=== PATIENT | male | born 1960 | race Caucasian/White ===

== ENCOUNTER → 2021-01-05 | Outpatient (CLI) | payer OTHER ==
--- NOTE | 2021-01-05 15:55 | REP ---
INDICATION: Assess stenosis TECHNIQUE: Carotid ultrasonography was performed bilaterally FINDINGS: Right: CCA systolic: 108.0 centimeters/second CCA diastolic: 21.7 centimeters/second ICA systolic: 82.0 centimeters/second ICA diastolic: 24.5 centimeters/second ICA CCA ratio: 0.76 Left: CCA systolic: 116.0 centimeters/second CCA diastolic: 23.8 centimeters/second ICA systolic: 104.0 centimeters/second ICA diastolic: 25.2 centimeters/second ICA CCA ratio: 0.90 Vertebral artery: Right: Antegrade flow left: Retrograde flow Patchy echogenic material seen along the distal common carotid artery and proximal internal carotid arterial montoya some of which casts and acoustic shadow. IMPRESSION: 1. There is evidence of a left subclavian steal syndrome. 2. According to the SRU criteria there is less than 50% stenosis of the internal carotid artery bilaterally. This is secondary to both calcified and noncalcified atheromatous plaque formation. <Electronically signed by Augustin Hidalgo > 01/05/21 [id number]
== END ==
LOC: M RAD 15:02
PROVIDERS: ATTEND Family Medicine
DX: R09.89 Other specified symptoms and signs involving the circulatory and respiratory systems (principal)